=== PATIENT | male | born 1945 | race Caucasian/White ===

== ENCOUNTER 2020-01-27 12:56 | Outpatient (CLI) | payer MEDICARE, MEDICAID ==
--- NOTE | 2020-02-02 00:27 | CCLSPC ---
PROCEDURE: Lower extremity arterial evaluation. The patient has risk factors of hypertension and smoking history with a history of claudication at about one block. Examination of the right leg reveals abnormal femoral waveforms. It persists throughout the leg and perhaps worsens at the tibial level. Ankle-arm index is 0.74 and toe-brachial index is 0.24. The left lower extremity demonstrates abnormal waveforms at the femoral level and these remain relatively stable to the ankle with an ankle-arm index of 0.94 and a toe-brachial index of 0.46. 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 This certainly could be consistent with a history of vascular claudication. Job ID: [id number]
== END 2020-01-27 12:57 | disposition home or self-care (01) ==
LOC: ULT 12:56
PROVIDERS: ATTEND Family Medicine
DX: I73.9 Peripheral vascular disease, unspecified (principal)
CPT/HCPCS: 93922

== ENCOUNTER 2020-11-11 10:14 | Outpatient (CLI) | payer MEDICARE | END 2020-11-11 10:15 | disposition home or self-care (01) | LOC: BICCT 10:14 | PROVIDERS: ATTEND Family Medicine | DX: Z12.2 Encounter for screening for malignant neoplasm of respiratory organs (principal); F17.210 Nicotine dependence, cigarettes, uncomplicated; J43.9 Emphysema, unspecified; I25.10 Atherosclerotic heart disease of native coronary artery without angina pectoris; I70.0 Atherosclerosis of aorta | CPT/HCPCS: 71271 ==

== ENCOUNTER 2021-04-29 09:50 | Outpatient (CLI) | payer MEDICARE | END 2021-04-29 09:51 | disposition home or self-care (01) | LOC: PET 09:50 | PROVIDERS: ATTEND Internal Medicine Pulmonary Disease | DX: R91.1 Solitary pulmonary nodule (principal) | CPT/HCPCS: 78815; A9552 ==

== ENCOUNTER 2022-02-07 07:17 | Outpatient (CLI) | payer OTHER, MEDICAID | END 2022-02-07 07:18 | disposition home or self-care (01) | LOC: BICCT 07:17 | PROVIDERS: ATTEND Internal Medicine Pulmonary Disease | DX: R91.1 Solitary pulmonary nodule (principal) | CPT/HCPCS: 71250 ==

== ENCOUNTER 2023-03-01 09:46 | Outpatient (CLI) | payer OTHER, MEDICAID | END 2023-03-01 09:47 | disposition home or self-care (01) | LOC: BICCT 09:46 | PROVIDERS: ATTEND Internal Medicine Critical Care Medicine | DX: Z12.2 Encounter for screening for malignant neoplasm of respiratory organs (principal); F17.218 Nicotine dependence, cigarettes, with other nicotine-induced disorders; R91.1 Solitary pulmonary nodule; J18.1 Lobar pneumonia, unspecified organism | CPT/HCPCS: 71271 ==

== ENCOUNTER 2023-03-01 11:26 | Outpatient (CLI) | payer OTHER, MEDICAID | END 2023-03-01 11:27 | disposition home or self-care (01) | LOC: RAD 11:26 | PROVIDERS: ATTEND Internal Medicine Critical Care Medicine | DX: R06.00 Dyspnea, unspecified (principal); J18.9 Pneumonia, unspecified organism | CPT/HCPCS: 71046; 71271 ==

== ENCOUNTER 2023-04-06 09:29 | Outpatient (CLI) | payer OTHER, MEDICAID | END 2023-04-06 09:30 | disposition home or self-care (01) | LOC: RAD 09:29 | PROVIDERS: ATTEND Internal Medicine Critical Care Medicine | DX: R06.00 Dyspnea, unspecified (principal); R91.8 Other nonspecific abnormal finding of lung field | CPT/HCPCS: 71046 ==

== ENCOUNTER 2023-06-01 10:52 | Outpatient (CLI) | payer OTHER, MEDICAID | END 2023-06-01 10:53 | disposition home or self-care (01) | LOC: RAD 10:52 | PROVIDERS: ATTEND Internal Medicine Critical Care Medicine | DX: R06.00 Dyspnea, unspecified (principal) | CPT/HCPCS: 71046 ==